=== PATIENT | female | born 1965 | race Caucasian/White ===

== ENCOUNTER 2017-09-23 10:26 | Emergency (ER) | payer MEDICARE, OTHER ==
[2017-09-23] MEDS ORDERED: traMADol HCL 50 MG TABLET PO ONE (10:41)
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
[2017-09-23] MEDS ORDERED: traMADol HCL 50 MG TABLET ONE (10:45)
[2017-09-23 11:09] VITALS: BP 122/63
== END 2017-09-23 11:28 | disposition home or self-care (01) ==
LOC: ER 10:26
PROC: 2W3GX1Z Immobilization of Right Thumb using Splint (ICD-10-PCS; principal; 2017-09-23)
DX: S60.011A Contusion of right thumb without damage to nail, initial encounter (principal); W23.1XXA Caught, crushed, jammed, or pinched between stationary objects, initial encounter; Y93.9 Activity, unspecified; Y92.9 Unspecified place or not applicable; Y99.9 Unspecified external cause status